=== PATIENT | male | born 1955 | race Caucasian/White ===

== ENCOUNTER 2017-01-28 17:40 | Observation (INO) ==
--- NOTE | 2017-01-28 20:05 | Urology - Consult Note ---
Date of Encounter: 01/28/17 Time of Encounter: 20:03 - Assessment and Plan (1) Clot retention of urine Current Visit: Yes Status: Acute Assessment and plan: At presentation to [facility] the hematuria does not seem as severe as described by the outside emergency room. I was able to irrigate the catheter without evidence of clot retention. The urine is lightly hematuric in the tube without CBI. I plan to leave the catheter draining without CBI and hopefully it will continue to clear. I also elected not to change out to a larger hematuria catheter. CT pelvis tonight to evaluate for residual clot in the bladder Start finasteride Start Rocephin IV fluids I will reevaluate the patient in the morning and may be able to discharge if urine continues to clear. Urology CN:SHAUNA Consult date: 01/28/17 Reason for consult Urology: Gross Hematuria History of present illness: I was contacted by [facility] emergency room earlier today regarding this patient. He recently underwent a bladder biopsy by an outside urologist. He is currently on Plavix which was not stopped for the procedure. Yesterday he went to the gym and was doing "squats " and after he left the gym he began to have gross hematuria. This culminated in clot retention today. [facility] did not have a urologist on staff and there hospitalist service would not admit him. The emergency room provider was concerned that he had too much hematuria for discharge. He arrives today with a three-way catheter in. No outside imaging was done. He describes minimal pain. He does state that he is had a history of a persistent urinary tract infection over the last few months. Past Med Surg Social Fam HX - Past Medical History Medical history: diabetes, hyperlipidemia, hypertension Psychiatric history: anxiety - Past Surgical History Surgical History: knee replacement - Social History Smoking Status: Former smoker Smokeless Tobacco Status: Yes (Years ago) Medications and Allergies Aspirin [Lo-Dose Aspirin EC] 81 mg PO DAILY 01/28/17 [History] Atorvastatin [Lipitor] 40 mg PO HS 01/28/17 [History] Cholecalciferol (D-3) [Vitamin D] 10,000 unit PO BID 01/28/17 [History] Clopidogrel [Plavix] 75 mg PO DAILY 01/28/17 [History] Cyclobenzaprine [Flexeril] 1 tab PO TID PRN 01/28/17 [History] Lisinopril [Zestril] 10 mg PO DAILY 01/28/17 [History] Metformin HCl [Metformin HCl ER] 500 mg PO DAILY 01/28/17 [History] Metoprolol Tartrate [Lopressor] 25 mg PO BID 01/28/17 [History] Nitrofurantoin Monohyd/M-Cryst [Macrobid 100 mg Capsule] 1 tab PO DAILY [History] Tamsulosin [Flomax] 1 tab PO DAILY 01/28/17 [History] Review of Systems - Constitutional no chills, no fever(s) - EENT Nose, mouth and throat: no dizziness - Cardiovascular no chest pain - Respiratory no cough - Gastrointestinal no abdominal pain, no nausea - Genitourinary difficulty urinating, hematuria - Musculoskeletal no back pain - Integumentary no lesions - Neurological no confusion - Psychiatric no anxiety - Hematologic/Lymphatic easy bleeding - Allergic/Immunologic no throat swelling Exam - General physical appearance Present: well developed, no distress - Eyes Present: PERRL - ENT Present: normal nares - Neck Present: no masses - Respiratory Present: normal respiratory effort - Cardiovascular Cardiovascular exam IM: RRR - Abdomen Abdomen: Present: soft - Genitourinary normal penis with no external lesions - Integumentary Present: no rash - Neurologic Present: normal coordination. Absent: disoriented, confused - Additional Findings Soft three-way catheter in place. Draining light hematuria and the tube. No CBI was running. Catheter plug on third port I irrigated the patient with approximately 240 mL of normal saline. I had no return of clots and it did irrigate easily. Urology Results - Labs All other labs normal. Consult Discharge Plan - Plan Referrals: Antonio Haider MD [Primary Care Provider] -
[2017-01-28] MEDS: 0.9 % Sodium Chloride 1,000 ML IVC SCH (21:00)
[2017-01-28] MEDS ORDERED: Acetaminophen 325 MG TABLET PO PRN (21:08)
--- NOTE | 2017-01-28 21:18 | Internal Med History&Physical ---
Date of Encounter: 01/28/17 Time of Encounter: 21:18 Assessment and Plan (1) Clot retention of urine Current visit: Yes Status: Acute 1 patient had bladder biopsy he was on Plavix which was not held. He then went to the gym and was doing some squats afterwards he began to pass some clots and eventually he was unable to urinate. Tompkins was placed in patient had hematuria. He was seen by urology who did irrigate catheter urine was clear. We will continue with urology's recommendations 2 continue with Tompkins catheter per urology 3 urology consultation (2) Diabetes mellitus Current visit: No Status: Chronic 1 Accu-Cheks before meals at bedtime with sliding scale insulin we will hold oral antidiabetic for now and resume home on discharge 2 diabetic diet Qualifiers: Diabetes mellitus type: type 2 Diabetes mellitus complication status: without complication Diabetes mellitus care home insulin use: without laborer marine terminal use Qualified Code(s): E11.9 - Type 2 diabetes mellitus without complications (3) Coronary artery disease Current visit: No Status: Chronic 1 she has a history of coronary disease with stent placement. continue with aspirin Plavix statin and beta soy 2 unsure if patient's stent is bare-metal/or VINCE will continue with aspirin and Plavix until clarified. Patient did have stents placed in June 2016 at [facility] we will obtain past records Qualifiers: Coronary Disease-Associated Artery/Lesion type: [place] artery [place] vs. transplanted heart: [place] heart Associated angina: without angina Qualified Code(s): I25.10 - Atherosclerotic heart disease of [place] coronary artery without angina pectoris (4) Hypertension Current visit: Yes Status: Acute Presently controlled we will continue with home medications Low sodium diet Qualifiers: Hypertension type: essential hypertension Qualified Code(s): I10 - Essential (primary) hypertension (5) UTI (urinary tract infection) Current visit: Yes Status: Acute 1 patient has history of UTIs he had a recent biopsy of his bladder. We will continue with Rocephin awaiting sensitivity results Qualifiers: Urinary tract infection type: site unspecified Hematuria presence: with hematuria Qualified Code(s): N39.0 - Urinary tract infection, site not specified; R31.9 - Hematuria, unspecified (6) DVT prophylaxis Current visit: Yes Status: Acute LETY ramirez Internal Medicine - H&P: HPI Chief complaint: Hematuria Admitted From: Hospital to Hospital Transfer Plans for Post Hospital Care: Home History of present illness: Mr. Haney is a 61 year old male past medical history of diabetes type 2 hyperlipidemia hypertension CAD with stent placement last stent was placed in June 2016, history spinal cord injury. The patient underwent a bladder biopsy on 01/19/17 at an outlying facility. Afterwards he did experience a couple days of bleeding that resolved. Yesterday he went to the gym and was doing some squats after he left the gym that evening he began to pass large clots. As the day progressed she began to have trouble urinating and experience some lower abdominal cramping. The patient is on Plavix . Stop prior to procedure. He presented to [facility] emergency department for evaluation. According to ER records lab work was obtained which was unremarkable except for urinalysis which did reveal urinary tract infection. Tompkins catheter was placed which did reveal large amount of blood He was given IM Rocephin at that facility. [facility] did not have a urologist on staff, he was transferred to the skilled facility for further treatment. Dr. Maxwell has been consulted he did see the patient. According to his notes he did irrigate the catheter draining clear we will continue with his recommendations at this time. Presently patient denies any pain or discomfort he is alert appropriate following simple commands his lung sounds are clear heart sounds are regular S1-S2 with no rubs clicks, murmurs noted catheter in place, noted tea-colored urine and tubing. He is hemodynamically stable this time. I reviewed this case with agrees with plan. Past Med Surg Social Fam HX - Past Medical History Medical history: diabetes, hyperlipidemia, hypertension Psychiatric history: anxiety - Past Surgical History Surgical History: knee replacement - Social History Smoking Status: Former smoker Smokeless Tobacco Status: Yes (Years ago) - Additional Family History Additional family history: Reviewed and noncontributory Internal Medicine - H&P: Meds Aspirin [Lo-Dose Aspirin EC] 81 mg PO DAILY 01/28/17 [History] Atorvastatin [Lipitor] 40 mg PO HS 01/28/17 [History] Cholecalciferol (D-3) [Vitamin D] 10,000 unit PO BID 01/28/17 [History] Clopidogrel [Plavix] 75 mg PO DAILY 01/28/17 [History] Cyclobenzaprine [Flexeril] 1 tab PO TID PRN 01/28/17 [History] Lisinopril [Zestril] 10 mg PO DAILY 01/28/17 [History] Metformin HCl [Metformin HCl ER] 500 mg PO DAILY 01/28/17 [History] Metoprolol Tartrate [Lopressor] 25 mg PO BID 01/28/17 [History] Nitrofurantoin Monohyd/M-Cryst [Macrobid 100 mg Capsule] 1 tab PO DAILY [History] Tamsulosin [Flomax] 1 tab PO DAILY 01/28/17 [History] Allergies No Known Allergies Allergy (Verified 01/28/17 21:30) All Systems PM: A 10-system review of systems was performed and is negative for pertinent findings except as documented above in the HPI. - Constitutional Constitutional: no chills, no fever(s), no night sweats - EENT Eyes: no change in vision, no discharge, no pain, no photophobia Ears: no ear discharge, no ear pain, no tinnitus Nose, mouth and throat: no dysphagia, no nasal discharge, no neck pain, no sore throat - Cardiovascular Cardiovascular ROS IM: no chest pain, no diaphoresis, no dyspnea, no lightheadedness, no palpitations, no syncope - Respiratory Respiratory: no cough, no dyspnea, no wheezing, no excessive phlegm production - Gastrointestinal Gastrointestinal: abdominal pain - Genitourinary Genitourinary ROS male: hematuria - Musculoskeletal Musculoskeletal ROS IM: no numbness, no tingling - Integumentary Integumentary IM: no rash, no unusual bruising - Neurological Neurological ROS: no confusion, no convulsions, no focal weakness, no numbness, no tingling, no tremor(s) - Hematologic/Lymphatic Hematologic/Lymphatic: no easy bruising - Constitutional Vitals: Temp Pulse Resp BP Pulse Ox 98.2 F 79 16 140/85 93 01/28/17 20:39 01/28/17 20:39 01/28/17 20:39 01/28/17 20:39 01/28/17 20:39 General appearance: Present: A&O X 3, answers questions appropriately - Head Head exam: Present: atraumatic, normocephalic - Eye Eye exam: Present: PERRL, conjuntiva pink, sclera anicteric Pupils: Present: PERRL - Neck Neck exam general surgery: Present: supple, trachea midline. Absent: lymphadenopathy - Respiratory Respiratory exam: Present: CTAB. Absent: accessory muscle use, rales, rhonchi, wheezes - Cardiovascular Cardiovascular exam: Present: RRR, +S1, +S2. Absent: diastolic murmur, gallop, rubs, systolic murmur - GI/Abdominal GI/Abdominal exam: Present: normal bowel sounds, soft, no peritoneal signs. Absent: distended, tenderness - Extremities Exam Extremities exam: Present: warm, radial pulses palpable and symetrical. Absent : calf tenderness, cyanotic, pedal edema - Neurological Exam Neurological exam: Present: CN II-XII intact, oriented X3, no focal deficits. Absent: pronater drift, facial droop, speech deficit Internal Med - H&P Results - Labs Labs: Lab work from outlying facility time does not [id number] 28 WBC 5.2 hemoglobin 15.2 hematocrit 45.8 platelets 209 Chem-7 sodium 136 potassium 4 chloride 104 CO2 is 25 glucose is 306 BUNs 18 creatinine 0.9 to
[2017-01-28] MEDS ORDERED: D5% in Water 1,000 ML IVC PRN (21:43)
[2017-01-28] MEDS ORDERED: *HR* Dextrose 50 % in Water (Syg) 50 ML SYRINGE IVP PRN (21:43)
[2017-01-28] MEDS ORDERED: Dextrose Gel 15 GM PO PRN ×2 (21:43)
[2017-01-28] MEDS: Finasteride 5 MG TABLET PO SCH (21:55)
[2017-01-29 05:08] LABS: Basophils % 0.5 %; Eosinophils # 0.2 K/mcL (0.0-0.6); Eosinophils % 2.8 %; Hematocrit 39.7 % (37.5-50.1); Hemoglobin 13.2 g/dL (12.9-16.9); Immature Granulocytes % 0.3 % (0-4); Lymphocytes # 1.6 K/mcL (0.6-4.6); Lymphocytes % 23.8 %; Mean Corpuscular HGB Conc 33.2 g/dL (31.6-35.5); Mean Corpuscular Hemoglobin 27.6 pg (28.0-33.3); Mean Corpuscular Volume 83.1 fL (83.0-100.0); Monocytes # 0.6 K/mcL (0.0-1.3); Monocytes % 9.8 %; Neutrophils # 4.1 K/mcL (1.6-8.9); Platelet Count 176 K/mcL (140-400); Red Blood Count 4.78 M/mcL (4.19-5.50); Red Cell Distribution Width 13.1 % (11.5-14.5); Segmented Neutrophils % 62.8 %
[2017-01-29 05:24] LABS: BUN/Creatinine Ratio 28 (6-26); Blood Urea Nitrogen 24 mg/dL (8-26); Calcium 8.4 mg/dL (8.6-10.8); Carbon Dioxide 25 mEq/L (19-29); Chloride 106 mEq/L (98-109); Glucose 227 mg/dL (70-99); Osmolality,Calculated 295 (280-300); Potassium 4.1 mEq/L (3.5-4.5); Sodium 137 mEq/L (136-145); eGFR For African Americans > 60 (> 60); eGFR For Non-African Americans > 60 (> 60)
[2017-01-29] MEDS: Insulin LISPRO 300 UNITS/3 ML VIAL SQ SCH ×3 (08:29→16:34)
[2017-01-29] MEDS: Finasteride 5 MG TABLET PO SCH (08:29)
[2017-01-29] MEDS: 0.9 % Sodium Chloride 1,000 ML IVC SCH ×2 (08:29→19:37)
[2017-01-29] MEDS: Aspirin Enteric Coated 81 MG Tablet PO SCH (08:29)
[2017-01-29] MEDS ORDERED: Lidocaine Jelly 6 ml Syringe TP ONE (08:36)
--- NOTE | 2017-01-29 08:48 | Urology Progress Note ---
Date of Encounter: 01/29/17 Time of Encounter: 08:46 - Assessment and Plan (1) Clot retention of urine Current Visit: Yes Status: Acute Assessment and plan: placed 3 way hematuria cath. irrigated same clot but able to clear with until no residual clot. pt wishes to stay overnight. should be able to release in AM. ct scan showed clot but no other concerning findings. If pt wishes for discharge today OK to send home with cath. followup monday. although not ideal bc drug eluding stent placed in Aug, continue to hold plavix because of recent active bleeding. pt understands increased risk for cardiac event. Progress Note Narrative: nurses irrigated large volume of clot overnight after cath stopped draining. Objective Initial Vital Signs Temp Pulse Resp BP Pulse Ox 98.2 F 79 16 140/85 93 01/28/17 20:39 01/28/17 20:39 01/28/17 20:39 01/28/17 20:39 01/28/17 20:39 - General physical appearance Present: well developed, no distress - Additional Exam urine remains light pink. no CBI - Labs 01/29/17 04:35 01/29/17 04:35 Diabetes panel 01/29/17 Range/Units 04:35 Sodium 137 (136-145) mEq/L Potassium 4.1 (3.5-4.5) mEq/L Chloride 106 (98-109) mEq/L Carbon Dioxide 25 (19-29) mEq/L BUN 24 (8-26) mg/dL Creatinine 0.87 (0.72-1.25) mg/dL Glucose 227 H (70-99) mg/dL Calcium 8.4 L (8.6-10.8) mg/dL Calcium panel 01/29/17 Range/Units 04:35 Calcium 8.4 L (8.6-10.8) mg/dL Pituitary panel 01/29/17 Range/Units 04:35 Sodium 137 (136-145) mEq/L Potassium 4.1 (3.5-4.5) mEq/L Chloride 106 (98-109) mEq/L Carbon Dioxide 25 (19-29) mEq/L BUN 24 (8-26) mg/dL Creatinine 0.87 (0.72-1.25) mg/dL Glucose 227 H (70-99) mg/dL Calcium 8.4 L (8.6-10.8) mg/dL Adrenal panel 01/29/17 Range/Units 04:35 Sodium 137 (136-145) mEq/L Potassium 4.1 (3.5-4.5) mEq/L Chloride 106 (98-109) mEq/L Carbon Dioxide 25 (19-29) mEq/L BUN 24 (8-26) mg/dL Creatinine 0.87 (0.72-1.25) mg/dL Glucose 227 H (70-99) mg/dL Calcium 8.4 L (8.6-10.8) mg/dL Consult Discharge Plan - Plan Referrals: Antonio Haider MD [Primary Care Provider] -
--- NOTE | 2017-01-29 12:32 | Internal Med Progress Note ---
<Yobani Lee - Last Filed: 01/29/17 12:39> Date of Encounter: 01/29/17 Time of Encounter: 10:00 - Assessment and plan (1) Clot retention of urine Current Visit: Yes Status: Acute Assessment and plan: -Urology is consulted, recommends stopping plavix for one week. -Cardiovascular risks discussed with patient -Urology placed larger dang in place. Will continue to monitor. (2) UTI (urinary tract infection) Current Visit: Yes Status: Acute Assessment and plan: Patient is being treated with Rocephin pending culture sensitivities. Qualifiers: Urinary tract infection type: site unspecified Hematuria presence: with hematuria Qualified Code(s): N39.0 - Urinary tract infection, site not specified; R31.9 - Hematuria, unspecified (3) Hypertension Current Visit: Yes Status: Chronic Assessment and plan: Continue home meds Qualifiers: Hypertension type: essential hypertension Qualified Code(s): I10 - Essential (primary) hypertension (4) Coronary artery disease Current Visit: No Status: Chronic Assessment and plan: -CAD s/p Stent X3 in July. -Patient's Plavix was held due to excessive bleeding. We will monitor him closely, and continue plavix in one week. Qualifiers: Coronary Disease-Associated Artery/Lesion type: [place] artery [place] vs. transplanted heart: [place] heart Associated angina: without angina Qualified Code(s): I25.10 - Atherosclerotic heart disease of [place] coronary artery without angina pectoris (5) Diabetes mellitus Current Visit: No Status: Chronic Assessment and plan: -Patient was on oral meds as out-patient. 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 We will start SCDs. - Subjective Interval history: The patient is resting comfortably in bed with no acute complaints overnight. He says that he's not experiencing any pain or discomfort at this time, and has no recollection of any fevers or chills. - Constitutional Vitals: Temp Pulse Resp BP Pulse Ox 97.8 F 65 16 115/73 96 01/29/17 10:27 01/29/17 10:27 01/29/17 10:27 01/29/17 10:27 01/29/17 10:27 General appearance: Present: A&O X 3, answers questions appropriately - Head Head exam: Present: atraumatic, normocephalic - Eye Eye exam: Present: PERRL, conjuntiva pink, sclera anicteric Pupils: Present: PERRL - Neck Neck exam general surgery: Present: supple, trachea midline. Absent: lymphadenopathy - Respiratory Respiratory exam: Present: CTAB. Absent: accessory muscle use, rales, rhonchi, wheezes - Cardiovascular Cardiovascular exam: Present: RRR, +S1, +S2. Absent: diastolic murmur, gallop, rubs, systolic murmur - GI/Abdominal GI/Abdominal exam: Present: normal bowel sounds, soft, no peritoneal signs. Absent: distended, tenderness - Additional comments: Patient has dang catheter in place, and it is draining appropriately. - Extremities Exam Extremities exam: Present: warm, radial pulses palpable and symetrical. Absent : calf tenderness, cyanotic, pedal edema - Neurological Exam Neurological exam: Present: CN II-XII intact, oriented X3, no focal deficits. Absent: pronater drift, facial droop, speech deficit - Skin Skin exam: Present: dry, intact Internal Medicine: Result - Labs CBC & Chem 7: 01/29/17 04:35 01/29/17 04:35 Labs: Short CBC 01/29/17 Range/Units 04:35 WBC 6.5 (4.3-11.1) K/mcL Hgb 13.2 (12.9-16.9) g/dL Hct 39.7 (37.5-50.1) % Plt Count 176 (140-400) K/mcL Neutrophils # 4.1 (1.6-8.9) K/mcL BMP 01/29/17 04:35 Sodium 137 Potassium 4.1 Chloride 106 Carbon Dioxide 25 BUN 24 Creatinine 0.87 Glucose 227 H Calcium 8.4 L - Impressions Impressions Pelvis CT 01/28/17 20:00 IMPRESSION: The urinary bladder is decompressed by Dang catheter. A small volume of hemorrhage/clot suspected within the urinary bladder. There are no findings to suggest urinary bladder perforation. D/ / Herrera Hobbs MD / Herrera Hobbs MD Interpreting Provider: Herrera Hobbs MD Consult Discharge Plan - Plan Referrals: Antonio Haider MD [Primary Care Provider] - <Torito Ingram - Last Filed: 01/29/17 15:44> Date of Encounter: 01/29/17 - Assessment and plan (1) Hematuria Current Visit: Yes Status: Acute Qualifiers: Hematuria type: gross Qualified Code(s): R31.0 - Gross hematuria (2) Coronary artery disease Current Visit: No Status: Chronic Qualifiers: Coronary Disease-Associated Artery/Lesion type: [place] artery [place] vs. transplanted heart: [place] heart Associated angina: without angina Qualified Code(s): I25.10 - Atherosclerotic heart disease of [place] coronary artery without angina pectoris (3) Diabetes mellitus Current Visit: No Status: Chronic Qualifiers: Diabetes mellitus type: type 2 Diabetes mellitus complication status: without complication Diabetes mellitus [facility] insulin use: without [facility] use Qualified Code(s): E11.9 - Type 2 diabetes mellitus without complications (4) Clot retention of urine Current Visit: Yes Status: Acute (5) Hypertension Current Visit: Yes Status: Chronic Qualifiers: Hypertension type: essential hypertension Qualified Code(s): I10 - Essential (primary) hypertension (6) UTI (urinary tract infection) Current Visit: Yes Status: Acute Qualifiers: Urinary tract infection type: site unspecified Hematuria presence: with hematuria Qualified Code(s): N39.0 - Urinary tract infection, site not specified; R31.9 - Hematuria, unspecified - Constitutional Vitals: Temp Pulse Resp BP Pulse Ox 98.8 F 95 16 166/68 95 01/29/17 14:34 01/29/17 14:34 01/29/17 14:34 01/29/17 14:34 01/29/17 14:34 Internal Medicine: Result - Labs CBC & Chem 7: 01/29/17 04:35 01/29/17 04:35 Labs: Short CBC 01/29/17 Range/Units 04:35 WBC 6.5 (4.3-11.1) K/mcL Hgb 13.2 (12.9-16.9) g/dL Hct 39.7 (37.5-50.1) % Plt Count 176 (140-400) K/mcL Neutrophils # 4.1 (1.6-8.9) K/mcL BMP 01/29/17 04:35 Sodium 137 Potassium 4.1 Chloride 106 Carbon Dioxide 25 BUN 24 Creatinine 0.87 Glucose 227 H Calcium 8.4 L - Impressions Impressions Pelvis CT 01/28/17 20:00 IMPRESSION: The urinary bladder is decompressed by Dang catheter. A small volume of hemorrhage/clot suspected within the urinary bladder. There are no findings to suggest urinary bladder perforation. D/ / Herrera Hobbs MD / Herrera Hobbs MD Interpreting Provider: Herrera Hobbs MD - Attending Attestation I examined this patient and my medical decision-making was reviewed with the Resident Physician on 01/29/17. I agree with the documented findings, disposition and treatment plan as described except to the extent set forth below. Mr Haney is currently in observation for severe urinary bleeding and clot retention due to recent bladder biopsy. Pt currently on Plavix on admission Mr. Haney is doing OK. No CP or SOB. No cough. Larger dang placed today and irrigated. No fever or chills. On abx to cover urine. Exam Alert. Comfortable Mucus membranes moist Heart reg No wheeze Abd nontender No edema Urine clearing I/P 1. CAD s/p VINCE - Plavix currently on hold. I will contact certified first assistant in AM regarding plans for discharge. Remains on ASA 81mg 2. Clot retention s/p dang 3. Gross hematuria Further diagnoses and plan as above.
[2017-01-29] MEDS ORDERED: Insulin LISPRO 300 UNITS/3 ML VIAL SQ SCH (21:00)
[2017-01-30 04:36] LABS: Bilirubin,Urine Negative (Negative); Blood,Urine Large (Negative); Color,Urine Yellow (Yellow); Glucose,Urine (UA) 500 mg/dL (Normal); Ketones,Urine Negative (Negative); Leukocyte Esterase,Urine Small (Negative); Nitrite,Urine Negative (Negative); Protein,Urine 100 mg/dL (Neg-Trace); Specific Gravity,Urine 1.013 (1.010-1.025); Urobilinogen,Urine Normal (Normal)
[2017-01-30 04:42] LABS: Clarity,Urine Hazy (Clear)
[2017-01-30 04:52] LABS: Bacteria,Urine Few per hpf (None-Few); RBC,Urine 30-50 per hpf (0-3); Squamous Epithelial Cell,Urine Few per lpf (None-Few)
[2017-01-30 05:55] LABS: Basophils % 0.5 %; Eosinophils # 0.2 K/mcL (0.0-0.6); Eosinophils % 3.4 %; Hematocrit 38.8 % (37.5-50.1); Hemoglobin 12.7 g/dL (12.9-16.9); Immature Granulocytes % 0.2 % (0-4); Lymphocytes # 1.9 K/mcL (0.6-4.6); Lymphocytes % 31.7 %; Mean Corpuscular HGB Conc 32.7 g/dL (31.6-35.5); Mean Corpuscular Hemoglobin 27.8 pg (28.0-33.3); Mean Corpuscular Volume 84.9 fL (83.0-100.0); Mean Platelet Volume 11.9 fL (9.4-12.4); Monocytes # 0.6 K/mcL (0.0-1.3); Monocytes % 9.8 %; Neutrophils # 3.2 K/mcL (1.6-8.9); Platelet Count 153 K/mcL (140-400); Red Blood Count 4.57 M/mcL (4.19-5.50); Red Cell Distribution Width 13.3 % (11.5-14.5); Segmented Neutrophils % 54.4 %
[2017-01-30] MEDS: 0.9 % Sodium Chloride 1,000 ML IVC SCH (05:57)
[2017-01-30 06:15] LABS: BUN/Creatinine Ratio 27 (6-26); Blood Urea Nitrogen 20 mg/dL (8-26); Calcium 7.9 mg/dL (8.6-10.8); Carbon Dioxide 23 mEq/L (19-29); Chloride 112 mEq/L (98-109); Glucose 225 mg/dL (70-99); Osmolality,Calculated 296 (280-300); Potassium 4.2 mEq/L (3.5-4.5); Sodium 138 mEq/L (136-145); eGFR For African Americans > 60 (> 60); eGFR For Non-African Americans > 60 (> 60)
--- NOTE | 2017-01-30 07:18 | Urology Progress Note ---
Date of Encounter: 01/30/17 Time of Encounter: 07:16 - Assessment and Plan (1) Clot retention of urine Current Visit: Yes Status: Resolved Assessment and plan: discharge with cath in place. place cath plug in third port and provide leg bag. followup monday for voiding trial. continue to hold plavix. ASA OK. Progress Note Subjective: feels better Narrative: urine has cleared Objective Initial Vital Signs Temp Pulse Resp BP Pulse Ox 98.2 F 79 16 140/85 93 01/28/17 20:39 01/28/17 20:39 01/28/17 20:39 01/28/17 20:39 01/28/17 20:39 - General physical appearance Present: well developed, no distress - Additional Exam urine completely clear - Labs 01/30/17 05:12 01/30/17 05:12 Diabetes panel 01/30/17 Range/Units 05:12 Sodium 138 (136-145) mEq/L Potassium 4.2 (3.5-4.5) mEq/L Chloride 112 H (98-109) mEq/L Carbon Dioxide 23 (19-29) mEq/L BUN 20 (8-26) mg/dL Creatinine 0.75 (0.72-1.25) mg/dL Glucose 225 H (70-99) mg/dL Calcium 7.9 L (8.6-10.8) mg/dL Calcium panel 01/30/17 Range/Units 05:12 Calcium 7.9 L (8.6-10.8) mg/dL Pituitary panel 01/30/17 Range/Units 05:12 Sodium 138 (136-145) mEq/L Potassium 4.2 (3.5-4.5) mEq/L Chloride 112 H (98-109) mEq/L Carbon Dioxide 23 (19-29) mEq/L BUN 20 (8-26) mg/dL Creatinine 0.75 (0.72-1.25) mg/dL Glucose 225 H (70-99) mg/dL Calcium 7.9 L (8.6-10.8) mg/dL Adrenal panel 01/30/17 Range/Units 05:12 Sodium 138 (136-145) mEq/L Potassium 4.2 (3.5-4.5) mEq/L Chloride 112 H (98-109) mEq/L Carbon Dioxide 23 (19-29) mEq/L BUN 20 (8-26) mg/dL Creatinine 0.75 (0.72-1.25) mg/dL Glucose 225 H (70-99) mg/dL Calcium 7.9 L (8.6-10.8) mg/dL Consult Discharge Plan - Plan Referrals: Antonio Haider MD [Primary Care Provider] -
[2017-01-30 09:15] LABS: Alanine Aminotransferase 14 Units/L (0-55); Albumin 2.7 g/dL (3.5-5.0); Alkaline Phosphatase 75 Units/L (38-126); Aspartate Amino Transferase 16 Units/L (5-34); Bilirubin,Total 0.3 mg/dL (0.2-1.2); Globulin 2.7 g/dL (2.4-3.5); Magnesium 1.8 mg/dL (1.6-2.6); Total Protein 5.4 g/dL (6.0-8.3)
[2017-01-30] MEDS: Finasteride 5 MG TABLET PO SCH (09:17)
[2017-01-30] MEDS: Aspirin Enteric Coated 81 MG Tablet PO SCH (09:17)
[2017-01-30] MEDS: Insulin LISPRO 300 UNITS/3 ML VIAL SQ SCH ×2 (09:31→12:17)
[2017-01-30 10:49] VITALS: BP 112/71
--- NOTE | 2017-01-30 12:10 | Discharge Summary ---
<MarleeYobani willett - Last Filed: 01/30/17 18:11> Date of Encounter: 01/30/17 Time of Encounter: 10:00 - Discharge Diagnosis (1) UTI (urinary tract infection) Priority: Primary Status: Acute Qualifiers: Urinary tract infection type: site unspecified Hematuria presence: with hematuria Qualified Code(s): N39.0 - Urinary tract infection, site not specified (2) Hypertension Priority: Secondary Status: Chronic Qualifiers: Hypertension type: essential hypertension Qualified Code(s): I10 - Essential (primary) hypertension (3) Coronary artery disease Priority: Secondary Status: Chronic Qualifiers: Coronary Disease-Associated Artery/Lesion type: pala artery [place] vs. transplanted heart: pala heart Associated angina: without angina Qualified Code(s): I25.10 - Atherosclerotic heart disease of pala coronary artery without angina pectoris (4) Diabetes mellitus Priority: Secondary Status: Chronic Qualifiers: Diabetes mellitus type: type 2 Diabetes mellitus complication status: without complication Diabetes mellitus watermaster insulin use: without watermaster use Qualified Code(s): E11.9 - Type 2 diabetes mellitus without complications (5) DVT prophylaxis Priority: Secondary Status: Acute - Discharge Medications Prescriptions: Cefdinir [Omnicef] 300 mg PO BID #6 capsule Home Medications: Aspirin [Lo-Dose Aspirin EC] 81 mg PO DAILY 01/28/17 [History] Atorvastatin [Lipitor] 40 mg PO HS 01/28/17 [History] Cholecalciferol (D-3) [Vitamin D] 10,000 unit PO BID 01/28/17 [History] Cyclobenzaprine [Flexeril] 1 tab PO TID PRN 01/28/17 [History] Lisinopril [Zestril] 10 mg PO DAILY 01/28/17 [History] Metformin HCl [Metformin HCl ER] 500 mg PO DAILY 01/28/17 [History] Metoprolol Tartrate [Lopressor] 25 mg PO BID 01/28/17 [History] Tamsulosin [Flomax] 1 tab PO DAILY 01/28/17 [History] Cefdinir [Omnicef] 300 mg PO BID #6 capsule 01/30/17 [Rx] Finasteride [Proscar] 5 mg PO DAILY tab 01/30/17 [Rx] Allergies/Adverse Reactions: Allergies morphine Adverse Reaction (Verified 01/29/17 13:06) Itching Procedures/tests Complete & Pending: Procedures Performed prior 72 hours Category Date Time Status CT pelvis wo no iv no oral [CT] Stat Cat Scan 01/28/17 20:00 Completed Date of admission: 01/28/17 19:11 Primary care physician: Antonio Haider MD Consults: 01/28/17 21:10 Consult to Urology [CONS] Routine Consulting Provider: Urology Genna Reason for Consult: Hematuria- Dr. Maxwell seen patient Time Notified: 21:11 Call Completed: No - Patient Status Disposition: Home, Self-Care Condition: Good Functional capacity at discharge: independent ambulation Overall status at discharge: patient is progressing back to baseline - Discharge Instructions Instructions: Urinary Retention in Men (GEN), Acute Hematuria (DC) Follow Up With: Anand Maxwell MD [Partnered Physician] - 02/01/17 8:30 am Additional Instructions: Maintain dang. See Dr. Maxwell this Monday as scheduled. Follow up with Dr. Brooks as soon as possible. - Diet and Activity Activity: increase activity as tolerated Diet: advance to your usual diet Hospital course: Mr. Haney is a 61 year old male with a history of CAD status post stent and June 2016, diabetes type 2, hyperlipidemia, hypertension, who underwent a bladder biopsy on 01/19/17 and outlying facility and has since been experiencing hematuria with passing of clots. The patient has been on Plavix due to history of stents placed for coronary artery disease. He first went to [facility] but was told that no urologist was on staff summary transferred to us. He was admitted to the hospital and seen by urology, and was given Rocephin for possible infection. While in the hospital, urology placed a three-way hematuria catheter and provided profuse irrigation. CT scan showed Klopp in no other concerning features. We spoke with his primary collar band creaser and confirmed it would be acceptable to discontinue Plavix for 1 week following this procedure. Patient says he is doing otherwise well we will continue his medication and antibiotic as outpatient and he should follow up with both urology and his primary care as soon as possible. The patient will also maintain the Dang catheter on his own during this time. - Time Spent with Patient Total time spent providing and/or coordinating discharge services: - Constitutional Vitals: Temp Pulse Resp BP Pulse Ox 98.3 F 73 17 112/71 96 01/30/17 10:48 01/30/17 10:48 01/30/17 10:48 01/30/17 10:48 01/30/17 10:48 General appearance: Present: A&O X 3, no acute distress, answers questions appropriately Exam: Gen.: Vitals noted. No acute distress. AAOx3 HEENT: PERRL/EOMI, oropharynx clear, Normocephalic, atraumatic Neck: Supple. No adenopathy. Cardiac: RRR, no murmur, +S1/S2 Pulmonary: CTA bilaterally, no wheezes, rales or rhonchi, equal chest expansion Abdomen: soft, nontender, BS noted, no guarding : Indwelling dang catheter present, no discharge present. Back: Nontender throughout. MSK: ROM intact, no joint swelling noted Extremities: no BLE edema, nontender calf, no cyanosis or clubbing Neuro: A&Ox3, moves all extremities, no focal deficits Psych: Appropriate mood and behavior <Torito Ingram - Last Filed: 01/30/17 19:14> Date of Encounter: 01/30/17 - Discharge Diagnosis (1) UTI (urinary tract infection) Status: Acute Qualifiers: Urinary tract infection type: acute cystitis Hematuria presence: with hematuria Qualified Code(s): N30.01 - Acute cystitis with hematuria (2) Hematuria Priority: Primary Status: Acute Qualifiers: Hematuria type: gross Qualified Code(s): R31.0 - Gross hematuria (3) Coronary artery disease Status: Chronic Qualifiers: Coronary Disease-Associated Artery/Lesion type: pala artery [place] vs. transplanted heart: pala heart Associated angina: without angina Qualified Code(s): I25.10 - Atherosclerotic heart disease of pal[place] coronary artery without angina pectoris (4) Diabetes mellitus Status: Chronic Qualifiers: Diabetes mellitus type: type 2 Diabetes mellitus complication status: without complication Diabetes mellitus watermaster insulin use: without penitentiary use Qualified Code(s): E11.9 - Type 2 diabetes mellitus without complications (5) Clot retention of urine Priority: Primary Status: Resolved (6) Hypertension Status: Chronic Qualifiers: Hypertension type: essential hypertension Qualified Code(s): I10 - Essential (primary) hypertension Procedures/tests Complete & Pending: Procedures Performed prior 72 hours Category Date Time Status CT pelvis wo no iv no oral [CT] Stat Cat Scan 01/28/17 20:00 Completed Date of admission: 01/28/17 19:11 Primary care physician: Antonio Haider MD Consults: 01/28/17 21:10 Consult to Urology [CONS] Routine Consulting Provider: Urology Genna Reason for Consult: Hematuria- Dr. Maxwell seen patient Time Notified: 21:11 Call Completed: No - Patient Status Functional capacity at discharge: independent ambulation Overall status at discharge: patient is progressing back to baseline - Diet and Activity Activity: increase activity as tolerated Diet: advance to your usual diet Hospital course: Mr. Haney is a 61 year old male - Time Spent with Patient Total time spent providing and/or coordinating discharge services: - Constitutional Vitals: Temp Pulse Resp BP Pulse Ox 98.3 F 73 17 112/71 96 01/30/17 10:48 01/30/17 10:48 01/30/17 10:48 01/30/17 10:48 01/30/17 10:48 General appearance: Present: A&O X 3, answers questions appropriately - Attending Attestation I examined this patient and my medical decision-making was reviewed with the Resident Physician on 01/30/17. I agree with the documented findings, disposition and treatment plan as described except to the extent set forth below. Mr. Haney was hospitalized for acute clot retention of urine. He is now afebrile and vitals stable. His collar band creaser has been contacted and is OK with holding Plavix short term. He is doing better and ready for discharge Exam Alert. Comfortable Heart reg Lungs clear Mucus membranes moist Plan D/C home with dang Follow up Weds with urology See card [place].
== END 2017-01-30 13:25 | disposition home or self-care (01) ==
LOC: 3ANU → SUATTDRO 19:11
PROVIDERS: ADMIT Internal Medicine; ATTEND Internal Medicine

== ENCOUNTER 2020-05-15 13:06 | Inpatient (IN) ==
[~2020-05-15 13:06] MED LIST: *HR* HYDROmorphone PF 0.5 MG/0.5 ML SYRINGE IVP PRN; Povidone-Iodine 45 ML, Sodium Chloride IRRigation 1,000 ML IR ONE
[2020-05-15] MEDS ORDERED: CeFAZolin Syr 2,000MG/20 ML 2,000 MG/20 ML SYRINGE IVPB ONE (13:37)
[2020-05-15] MEDS ORDERED: Ringers Solution, Lactated 1,000 ML IVC SCH ×2 (13:45→19:10)
[2020-05-15] MEDS ORDERED: Promethazine 6.25 MG in Water for inj. (sterile) 20 ML IVPB PRN (14:00)
[2020-05-15] MEDS ORDERED: Acetaminophen IV 1,000 MG/100 ML INFUS..BTL IVPB ONE (14:00)
[2020-05-15] MEDS ORDERED: *HR* Meperidine 25 MG/ML SYRINGE IVP PRN (14:00)
[2020-05-15] MEDS ORDERED: Ondansetron 4 MG/2 ML VIAL IVP PRN ×2 (14:00→19:10)
[2020-05-15] MEDS ORDERED: *HR* Succinylcholine 200 MG/10 ML VIAL IVP ONE (14:25)
[2020-05-15] MEDS ORDERED: *HR* Propofol 200 MG/20 ML VIAL IVP ONE ×2 (14:25→16:32)
[2020-05-15] MEDS ORDERED: Lidocaine -MPF 2% 2 ML VIAL ONE (14:25)
[2020-05-15] MEDS ORDERED: Ropivacaine/PF 0.5% 30 ML VIAL ONE (15:31)
[2020-05-15] MEDS ORDERED: *HR* Midazolam HCl 2 MG/2 ML VIAL ONE (15:31)
[2020-05-15] MEDS ORDERED: *HR* FentaNYL (PF) 100 MCG/2 ML VIAL ONE (15:31)
[2020-05-15] MEDS ORDERED: ROPIVACAINE/PF/NS 0.25% 1 EACH SYRINGE INTRAART ONE (15:32)
[2020-05-15] MEDS ORDERED: Ethanol\\Acetic Acid\\Na Ace\\Ben 1,000 ML IRRIG.SOLN IR ONE (15:39)
[2020-05-15] MEDS ORDERED: Vancomycin 1,000 MG VIAL ONE (15:40)
[2020-05-15] MEDS ORDERED: *HR* PHENYLEPHRINE 1,000 MCG/10 ML SYRINGE IVP ONE (16:36)
[2020-05-15] MEDS ORDERED: Ondansetron 4 MG/2 ML VIAL ONE (16:39)
[2020-05-15] MEDS ORDERED: *HR* Enoxaparin 30 MG/0.3 ML SYRINGE SQ SCH (18:00)
[2020-05-15 18:16] LABS: Hematocrit 44.2 % (37.5-50.1); Hemoglobin 13.9 g/dL (12.9-16.9)
[2020-05-15] MEDS ORDERED: D5% in Water 1,000 ML IVC PRN (19:10)
[2020-05-15] MEDS ORDERED: (Dulaglutide [Trulicity] 0.75 MG) SQ SCH (19:10)
[2020-05-15] MEDS ORDERED: Sennosides 8.6 MG TABLET PO PRN (19:10)
[2020-05-15] MEDS ORDERED: *HR* Dextrose 50 % in Water (Vial) 50 ML VIAL IVP PRN (19:10)
[2020-05-15] MEDS ORDERED: Dextrose Gel 15 GM/37.5 ML TUBE PO PRN ×2 (19:10)
[2020-05-15] MEDS ORDERED: Insulin LISPRO 300 UNITS/3 ML VIAL SQ SCH ×3 (19:10→21:00)
[2020-05-15] MEDS ORDERED: Fluticasone Propionate Nasal 50 MCG/SPRAY BOTTLE NS PRN (19:10)
[2020-05-15] MEDS ORDERED: Naloxone 0.4 MG/ML INJ IVP PRN (19:10)
[2020-05-15] MEDS ORDERED: *HR* HYDROcodone/Acet 5/325 mg TABLET PO PRN (19:10)
[2020-05-15] MEDS ORDERED: MOM Conc 10 ML UD.LIQ PO PRN (19:10)
[2020-05-15] MEDS: Insulin LISPRO 300 UNITS/3 ML VIAL SQ SCH (20:03)
[2020-05-15] MEDS: *HR* Metformin 500 MG TABLET PO SCH (21:04)
[2020-05-15] MEDS: carvediloL 6.25 MG TABLET PO SCH (21:04)
[2020-05-15] MEDS: CeFAZolin 2 GM/120 ML BAG IVPB SCH (23:56)
[2020-05-16] MEDS: *HR* HYDROcodone/Acet 10/325 mg TABLET PO PRN ×2 (04:27→10:43)
[2020-05-16] MEDS ORDERED: *HR* Enoxaparin 30 MG/0.3 ML SYRINGE SQ SCH (06:00)
[2020-05-16 07:37] VITALS: BP 142/88
[2020-05-16] MEDS: carvediloL 6.25 MG TABLET PO SCH (08:39)
[2020-05-16] MEDS: *HR* Metformin 500 MG TABLET PO SCH (08:39)
[2020-05-16] MEDS: CeFAZolin 2 GM/120 ML BAG IVPB SCH (08:40)
[2020-05-16] MEDS: Insulin LISPRO 300 UNITS/3 ML VIAL SQ SCH (08:41)
[2020-05-16] MEDS ORDERED: Cholecalciferol (D-3) 1,000 UNIT (25MCG) TABLET PO SCH (09:00)
[2020-05-16] MEDS ORDERED: Aspirin Enteric Coated 81 MG Tablet PO SCH (09:00)
[2020-05-16] MEDS ORDERED: *HR* Glimepiride 2 MG TABLET PO SCH (09:00)
[2020-05-16] MEDS ORDERED: lisinopriL 20 MG TABLET PO SCH (09:00)
[2020-05-16] MEDS ORDERED: (Zinc Acetate [Galzin] 50 MG) PO SCH (09:00)
== END 2020-05-16 11:58 | disposition home or self-care (01) | DRG 483 ==
LOC: SAMDAY 13:06 → 3NENU 19:08
PROVIDERS: ADMIT Orthopaedic Surgery; ATTEND Orthopaedic Surgery